=== PATIENT | female | born 2000 | race Two or more races ===

== ENCOUNTER 2024-05-10 03:49 | Emergency (ER) | payer MEDICAID ==
[~2024-05-10] VITALS: Ht 157.5 cm; Wt 72.0 kg
[2024-05-10 04:01] VITALS: TEMP 98.3
[2024-05-10 04:50] VITALS: BP 101/55; PULSE 78; RESP 16; O2SAT 100
[2024-05-10] MEDS: ERYTHROMYCIN 0.5% 3.5 GM TUBE OPHTHALMIC OINTMENT OS ONE (04:54)
== END 2024-05-10 04:59 | disposition home or self-care (01) ==
LOC: EMS 03:53
DX: O99.891 Other specified diseases and conditions complicating pregnancy (principal); H10.9 Unspecified conjunctivitis; Z3A.32 32 weeks gestation of pregnancy
CPT/HCPCS: 99283